=== PATIENT | female | born 1955 ===

== ENCOUNTER 2025-01-10 05:46 | Day surgery (SDC) | payer OTHER ==
[~2025-01-10 05:46] MED LIST: PEPCID AC10 MG PO; PROAIR RESPICL90 MCG IH; PROTONIX20 MG PO; SINGULAIR10 MG PO; SYMBICORT 16010.2 GM IH; XYZAL5 MG PO
[2025-01-10] MEDS ORDERED: CEFAZOLIN SODIUM 1,000 MG VIAL ONE (11:49)
[2025-01-10] MEDS ORDERED: BUPIVACAINE HCL 30 ML VIAL IJ ONE (12:15)
== END 2025-01-10 15:05 | disposition home or self-care (01) ==
LOC: CIR.AMB 05:46
PROVIDERS: ATTEND Surgery Surgery of the Hand
DX: M65.842 Other synovitis and tenosynovitis, left hand (principal); Z88.6 Allergy status to analgesic agent; Z88.5 Allergy status to narcotic agent; Z91.013 Allergy to seafood; J45.909 Unspecified asthma, uncomplicated; M19.90 Unspecified osteoarthritis, unspecified site; J32.9 Chronic sinusitis, unspecified